=== PATIENT | female | born 2000 | race Caucasian/White ===

== ENCOUNTER 2025-03-04 14:01 | Observation (INO) | payer BC, SELFPAY ==
[2025-03-04 14:24] VITALS: BP 132/77; PULSE 113; TEMP 36.8
[2025-03-04 14:43] LABS: Glucose Urine UA NEGATIVE (NEGATIVE)
--- NOTE | 2025-03-04 15:11 | US_ITS ---
The [address] [address] Patient Name: KAMRAN THAYER MRN: [id number] date: 2000 Sex: F Assigned Patient Location: [facility] Current Patient Location: Accession/Order Number: [id number] Exam Date: 03/04/2025 15:17 Report Date: 03/04/2025 16:34 At the request of: SHABBIR FREGOSO DO Procedure: US OB cervical length Ultrasound cervical length INDICATION: Vaginal spotting and bleeding cramping FINDINGS: Within the uterus there is a fetus with transverse lie. Placenta is posterior and fundal in location. Amniotic fluid volume of 16.5 cm between the 5th and 95th percentile. Largest pocket 4.9 cm. Placenta length measures 4.1 cm. heart rate 144 beats per minutes. somatic motion documented by the systems analysis manager. Cervical length measures 3 cm appearing closed. Small amount of fluid within the canal noted. US/US OB cervical length IMPRESSION: Single live active fetus in transverse lie. Cervix 3 cm in length and closed Impression dictated by: Gareth Barcenas M.D. 03/04/2025 4:34 PM Dictation Location: [employer] Scheduling Electronically authenticated by: [id number] Y Date: 03/04/2025 16:34
--- NOTE | 2025-03-04 15:11 | US_ITS ---
[place] [id number] Patient Name: KAMRAN THAYER MRN: [id number] date: 2000 Sex: F Assigned Patient Location: [facility] Current Patient Location: Accession/Order Number: [id number] Exam Date: 03/04/2025 15:17 Report Date: 03/04/2025 16:30 At the request of: SHABBIR FREGOSO DO Procedure: US OB BPP w non-stress Ultrasound biophysical profile score INDICATION: Vaginal Bleeding COMPARISON: None FINDINGS/IMPRESSION: 8 out of 8 score biophysical profile. heart rate 144 beats per minutes. ABEBE measures 16.5 cm. Impression dictated by: Gareth Barcenas M.D. 03/04/2025 4:30 PM Dictation Location: [place] [address] Electronically authenticated by: [id number] Y Date: 03/04/2025 16:30
[2025-03-04 15:12] LABS: Cast Seen? NONE SEEN #/LPF (NONE SEEN); Crystals Seen? None Seen #/HPF (None Seen); Urine Culture Indicated YES-LC
--- NOTE | 2025-03-04 15:12 | US_ITS ---
[address] [address] Patient Name: KAMRAN THAYER MRN: [id number] date: 2000 Sex: F Assigned Patient Location: [facility] Current Patient Location: Accession/Order Number: [id number] Exam Date: 03/04/2025 15:17 Report Date: 03/04/2025 16:35 At the request of: SHABBIR FREGOSO DO Procedure: US OB placenta Placental ultrasound INDICATION: Vaginal spotting and bleeding cramping FINDINGS: Within the uterus there is a fetus with transverse lie. Placenta is posterior and fundal in location. Amniotic fluid volume of 16.5 cm between the 5th and 95th percentile. Largest pocket 4.9 cm. Placenta length measures 4.1 cm. heart rate 144 beats per minutes. somatic motion documented by the bobbin presser. Cervical length measures 3 cm appearing closed. Small amount of fluid within the canal noted. US/US OB placenta IMPRESSION: Single live active fetus in transverse lie. Cervix 3 cm in length and closed Impression dictated by: Gareth Barcenas M.D. 03/04/2025 4:35 PM Dictation Location: [place] ([email or web address]) Electronically authenticated by: [id number] Y Date: 03/04/2025 16:35
== END 2025-03-04 16:00 | disposition home or self-care (01) ==
PROVIDERS: Admitting Provider Obstetrics & Gynecology; Visit Provider Obstetrics & Gynecology
DX: O46.90 Antepartum hemorrhage, unspecified, unspecified trimester (principal); Z3A.00 Weeks of gestation of pregnancy not specified
CPT/HCPCS: 59025; 76815; 76817; 76818; 81001; 87086; G0378; G0379